=== PATIENT | male | born 1995 | race Caucasian/White ===

== ENCOUNTER 2022-03-24 14:55 | Emergency (ER) | payer MEDICAID ==
[~2022-03-24] VITALS: Ht 177.8 cm; Wt 73.5 kg
[2022-03-24 15:29] VITALS: BP 122/83
[2022-03-24] MEDS ORDERED: ONDA4TAB12 PO (16:37)
[2022-03-24] MEDS ORDERED: GABA100C PO (16:37)
[2022-03-24] MEDS ORDERED: LORA-269 PO (16:37)
== END 2022-03-24 17:00 | disposition home or self-care (01) ==
LOC: ER 14:55
DX: F10.20 Alcohol dependence, uncomplicated (principal); Y90.9 Presence of alcohol in blood, level not specified
CPT/HCPCS: 99283

== ENCOUNTER 2022-04-14 15:00 | Emergency (ER) | payer MEDICAID ==
[~2022-04-14] VITALS: Ht 177.8 cm; Wt 160.0 kg
[~2022-04-14 15:00] MED LIST: GABA100C PO; LORA-269 PO; ONDA4TAB12 PO
--- NOTE | 2022-04-14 15:36 | NUR ---
Met with patient in regards to alcohol use and patient wanting a clearance for [facility]. Patient was here a week ago and didn't make it to [facility]. Patient has medication at home already and just needs clearance for his bed tomorrow. I talked to Derrick.
[2022-04-14 16:12] VITALS: BP 136/76
== END 2022-04-14 16:45 | disposition home or self-care (01) ==
LOC: ER 15:00
DX: F10.10 Alcohol abuse, uncomplicated (principal); Z79.899 Other long term (current) drug therapy
CPT/HCPCS: 99281

== ENCOUNTER 2022-12-17 15:39 | Emergency (ER) | payer MEDICAID ==
[~2022-12-17] VITALS: Ht 177.8 cm; Wt 75.0 kg
[2022-12-17 15:47] VITALS: BP 117/76; PULSE 91; RESP 20; TEMP 99.9; O2SAT 96
[2022-12-17] MEDS ORDERED: HYDROcodone/acetaminophen 10/325mg tab PO ONE (16:30)
[2022-12-17] MEDS ORDERED: LORazepam 1 MG tablet PO ONE (16:30)
[2022-12-17 16:32] LABS: BASOPHILS # (AUTO) 0.1 X10'3 (0-0.2); BASOPHILS % (AUTO) 0.9 % (0-1); EOSINOPHILS # (AUTO) 0.1 X10'3 (0-0.9); EOSINOPHILS % (AUTO) 1.3 % (0-6); HEMATOCRIT 40.2 % (42.0-52.0); HEMOGLOBIN 13.9 g/dl (14.0-17.9); LYMPHOCYTES # (AUTO) 1.1 X10'3 (1.1-4.8); LYMPHOCYTES % (AUTO) 17.8 % (21-51); MEAN CORPUSCULAR HEMOGLOBIN 34.4 PG (27.0-31.0); MEAN CORPUSCULAR HGB CONC 34.6 g/dL (33.0-36.5); MEAN CORPUSCULAR VOLUME 99.4 FL (78-98); MEAN PLATELET VOLUME 7.7 FL (7.4-10.4); MONOCYTES # (AUTO) 0.7 X10'3 (0-0.9); NEUTROPHILS # (AUTO) 4.1 X10'3 (1.8-7.7); PLATELET COUNT 168 X10'3 (140-440); RED BLOOD COUNT 4.05 X10'6 (4.70-6.10); RED CELL DISTRIBUTION WIDTH 12.6 % (11.5-14.5)
[2022-12-17 16:42] LABS: ALANINE AMINOTRANSFERASE 226 U/L (12-78); ALBUMIN 4.1 G/DL (3.4-5.0); ALBUMIN/GLOBULIN RATIO 1.2 (1.1-1.5); ALKALINE PHOSPHATASE 88 IU/L (46-116); ANION GAP 14 (8-16); ASPARTATE AMINO TRANSFERASE 205 U/L (10-37); BILIRUBIN,TOTAL 1.1 MG/DL (0.1-1.0); BLOOD UREA NITROGEN 8 MG/DL (7-18); CALCIUM 9.1 MG/DL (8.5-10.1); CHLORIDE 100 MMOL/L (99-107); GLUCOSE 92 MG/DL (70-104); POTASSIUM 4.4 MMOL/L (3.5-5.1); SODIUM 138 MMOL/L (135-145); TOTAL CARBON DIOXIDE 24.5 MMOL/L (24-32); TOTAL PROTEIN 7.6 G/DL (6.4-8.2); eCRCL 114 ML/MIN; eGFR 89 ML/MIN
[2022-12-17] MEDS ORDERED: TRAM50TA2 PO (18:22)
== END 2022-12-17 18:34 | disposition home or self-care (01) ==
LOC: ER 15:40
DX: M25.562 Pain in left knee (principal); R74.01 Elevation of levels of liver transaminase levels; F10.20 Alcohol dependence, uncomplicated; F17.200 Nicotine dependence, unspecified, uncomplicated; Z79.899 Other long term (current) drug therapy; Y90.9 Presence of alcohol in blood, level not specified
CPT/HCPCS: 36415; 73560; 80053; 85025; 99284; A6258